=== PATIENT | female | born 1935 | race African-American/Black ===

== ENCOUNTER 2017-09-23 08:50 | Inpatient (IN) ==
[2017-09-23 09:53] LABS: Basophils % 0.5 % (0.0-0.8); Eosinophils # 0.1 10*3/uL (0.0-0.87); Eosinophils % 1.1 % (0.00-10.9); Hematocrit 31.7 VOL% (35.7-47.0); Hemoglobin 10.2 GM/DL (12.0-16.0); Immature Granulocytes % 0.2 %; Immature Granulocytes Absolute 0.01 #; Lymphocytes # 0.9 10*3/uL (1.4-4.0); Lymphocytes % 16.4 % (21.3-54.2); Mean Corpuscular HGB Conc 32.2 GM/DL (32-36); Mean Corpuscular Hemoglobin 28 PG (27-34); Mean Corpuscular Volume 86.4 FL (87-102); Mean Platelet Volume 9.6 FL (9.6-12.0); Monocytes # 0.5 10*3/uL (0.11-0.8); Monocytes % 7.9 % (1.7-12.7); Neutrophils # 4.2 10*3/uL (1.4-7.4); Neutrophils % 73.9 % (38.7-73.9); Platelet Count 199 T/CUMM (130-400); Red Blood Count 3.67 MC/CUMM (3.8-5.5); Red Cell Distribution Width 14.1 % (9.3-17.3); White Blood Count 5.7 T/CUMM (4-12)
[2017-09-23 10:09] LABS: Albumin 3.7 G/DL (3.4-5.0); Bilirubin,Total 0.4 MG/DL (0.2-1.0); Calcium 8.9 MG/DL (8.5-10.1); Osmolality,Calculated 288.4 MOS/KG (273-304); Potassium 4.9 MMOL/L (3.5-5.1); Total Protein 7.4 G/DL (6.4-8.3)
[2017-09-23 10:21] LABS: INR 4.7
[2017-09-23 10:29] LABS: PT Patient Result 46.5 SECS; Partial Thromboplastin Time 54.1 SECS (0-40)
[2017-09-23 10:35] LABS: Apearance,Urine CLEAR (Clear); Bilirubin,Urine Negative (Negative); Blood, Urine Small mg/dL (Negative); Glucose,Urine (UA) Negative (Negative); Ketones,Urine Negative (Negative); Nitrite,Urine Negative (Negative); Protein,Urine Negative; RBC,Urine 3 /HPF (0-4); Urine Color Yellow (Yellow); Urine Specific Gravity 1.011 (1.001-1.035); Urine Urobilinogen < 2.0 EU/DL (0.2-1.0); WBC,Urine <1 /HPF (0-6)
[2017-09-23] MEDS: LACTATED RINGERS 1,000 ML IV SCH ×2 (13:47→20:57)
[2017-09-23] MEDS ORDERED: ACETAMINOPHEN 325 MG TABLET PO PRN (14:32)
[2017-09-23] MEDS ORDERED: ONDANSETRON 4 MG/2 ML VIAL IV PRN (14:32)
[2017-09-23] MEDS ORDERED: COLCHICINE 0.6 MG TABLET PO PRN (14:35)
[2017-09-23] MEDS ORDERED: CLORAZEPATE 3.75 MG TABLET PO PRN (14:35)
[2017-09-23] MEDS ORDERED: PANTOPRAZOLE 40 MG TABLET PO PRN (14:35)
[2017-09-23 16:51] LABS: Troponin I Only < 0.015 NG/ML (0.00-0.045)
[2017-09-23 18:28] LABS: Free T4 (Free Thyroxine) 1.05 NG/DL (0.76-1.46); Thyroid Stimulating Hormone 1.07 uIU/ml (0.358-3.74)
[2017-09-23 18:30] LABS: Troponin I Only < 0.015 NG/ML (0.00-0.045)
[2017-09-23] MEDS: SPIRONOLACTONE 25 MG TABLET PO SCH (20:56)
[2017-09-23] MEDS: ATORVASTATIN 40 MG TABLET PO SCH (20:57)
[2017-09-23] MEDS: IRBESARTAN 150 MG TABLET PO SCH (20:57)
[2017-09-23 21:19] LABS: Troponin I Only < 0.015 NG/ML (0.00-0.045)
[2017-09-23] MEDS: DOCUSATE SODIUM 100 MG CAPSULE PO SCH (22:10)
[2017-09-24 00:21] LABS: Troponin I Only < 0.015 NG/ML (0.00-0.045)
[2017-09-24] MEDS: LACTATED RINGERS 1,000 ML IV SCH ×4 (04:16→20:50)
[2017-09-24 05:01] LABS: Basophils % 0.5 % (0.0-0.8); Eosinophils # 0.1 10*3/uL (0.0-0.87); Eosinophils % 2.2 % (0.00-10.9); Hematocrit 30.2 VOL% (35.7-47.0); Hemoglobin 9.6 GM/DL (12.0-16.0); Immature Granulocytes % 0.5 %; Immature Granulocytes Absolute 0.02 #; Lymphocytes # 1.4 10*3/uL (1.4-4.0); Mean Corpuscular HGB Conc 31.8 GM/DL (32-36); Mean Corpuscular Hemoglobin 28 PG (27-34); Mean Corpuscular Volume 86.8 FL (87-102); Mean Platelet Volume 9.7 FL (9.6-12.0); Monocytes # 0.5 10*3/uL (0.11-0.8); Neutrophils % 49.8 % (38.7-73.9); Platelet Count 193 T/CUMM (130-400); Red Blood Count 3.48 MC/CUMM (3.8-5.5); Red Cell Distribution Width 14.2 % (9.3-17.3); White Blood Count 4.1 T/CUMM (4-12)
[2017-09-24 05:25] LABS: Calcium 8.3 MG/DL (8.5-10.1); Potassium 4.9 MMOL/L (3.5-5.1)
[2017-09-24] MEDS: PANTOPRAZOLE 40 MG TABLET PO SCH (09:15)
[2017-09-24] MEDS: SPIRONOLACTONE 25 MG TABLET PO SCH ×2 (09:15→20:49)
[2017-09-24] MEDS: DOCUSATE SODIUM 100 MG CAPSULE PO SCH ×2 (09:15→20:49)
[2017-09-24] MEDS: ALLOPURINOL 100 MG TABLET PO SCH (09:16)
[2017-09-24] MEDS: methylPREDNISolone SOD SUC 40 MG/1 ML VIAL IV SCH ×2 (11:54→20:47)
[2017-09-24] MEDS: IRBESARTAN 150 MG TABLET PO SCH (20:49)
[2017-09-24] MEDS: ATORVASTATIN 40 MG TABLET PO SCH (20:49)
[2017-09-25] MEDS: LACTATED RINGERS 1,000 ML IV SCH (04:58)
[2017-09-25 04:59] LABS: Basophils % 0.1 % (0.0-0.8); Hematocrit 30.4 VOL% (35.7-47.0); Immature Granulocytes % 0.5 %; Immature Granulocytes Absolute 0.06 #; Lymphocytes # 0.7 10*3/uL (1.4-4.0); Lymphocytes % 5.6 % (21.3-54.2); Mean Corpuscular HGB Conc 32.9 GM/DL (32-36); Mean Corpuscular Hemoglobin 28 PG (27-34); Mean Corpuscular Volume 84.4 FL (87-102); Monocytes # 0.2 10*3/uL (0.11-0.8); Monocytes % 1.5 % (1.7-12.7); Neutrophils # 10.7 10*3/uL (1.4-7.4); Neutrophils % 92.3 % (38.7-73.9); Platelet Count 204 T/CUMM (130-400); Red Cell Distribution Width 13.9 % (9.3-17.3); White Blood Count 11.6 T/CUMM (4-12)
[2017-09-25 05:26] LABS: Band Neutrophils 4 % (0-10); Lymphocytes 6 % (20-55); Segmented Neutrophils 87 % (50-85); Total Cells Counted 100
[2017-09-25 05:27] LABS: Hypochromasia 1+; Microcytosis Slight; Ovalocytes Slight
[2017-09-25 05:28] LABS: Calcium 8.8 MG/DL (8.5-10.1); Osmolality,Calculated 288.5 MOS/KG (273-304); Platelet Estimate Normal; Potassium 5.2 MMOL/L (3.5-5.1)
[2017-09-25] MEDS: PANTOPRAZOLE 40 MG TABLET PO SCH (08:34)
[2017-09-25] MEDS: SPIRONOLACTONE 25 MG TABLET PO SCH ×2 (08:34→20:53)
[2017-09-25] MEDS: ALLOPURINOL 100 MG TABLET PO SCH (08:34)
[2017-09-25] MEDS: DOCUSATE SODIUM 100 MG CAPSULE PO SCH ×2 (09:24→20:54)
[2017-09-25 10:43] LABS: INR 4.6
[2017-09-25 10:46] LABS: PT Patient Result 45.9 SECS
[2017-09-25] MEDS: LACTATED RINGERS IV SCH ×2 (14:50→23:53)
[2017-09-25] MEDS: MAGNESIUM SULF IV SCH ×2 (14:50→23:53)
[2017-09-25] MEDS: IRBESARTAN 150 MG TABLET PO SCH (20:53)
[2017-09-25] MEDS: ATORVASTATIN 40 MG TABLET PO SCH (20:53)
[2017-09-26 05:02] LABS: Basophils % 0.1 % (0.0-0.8); Eosinophils % 0.2 % (0.00-10.9); Hematocrit 27.4 VOL% (35.7-47.0); Hemoglobin 9.1 GM/DL (12.0-16.0); Immature Granulocytes % 0.4 %; Immature Granulocytes Absolute 0.04 #; Lymphocytes # 1.7 10*3/uL (1.4-4.0); Lymphocytes % 18.1 % (21.3-54.2); Mean Corpuscular HGB Conc 33.2 GM/DL (32-36); Mean Corpuscular Hemoglobin 28 PG (27-34); Mean Corpuscular Volume 85.1 FL (87-102); Mean Platelet Volume 10.1 FL (9.6-12.0); Monocytes # 0.6 10*3/uL (0.11-0.8); Monocytes % 6.4 % (1.7-12.7); Neutrophils % 74.8 % (38.7-73.9); Platelet Count 196 T/CUMM (130-400); Red Blood Count 3.22 MC/CUMM (3.8-5.5); Red Cell Distribution Width 14.5 % (9.3-17.3); White Blood Count 9.3 T/CUMM (4-12)
[2017-09-26 05:03] LABS: INR 4.4
[2017-09-26 05:04] LABS: PT Patient Result 44.4 SECS
[2017-09-26 05:37] LABS: Calcium 8.5 MG/DL (8.5-10.1); Potassium 4.8 MMOL/L (3.5-5.1)
[2017-09-26] MEDS ORDERED: LACTATED RINGERS 1,000 ML IV SCH (06:30)
[2017-09-26] MEDS: MAGNESIUM SULF IV SCH (06:59)
[2017-09-26] MEDS: LACTATED RINGERS IV SCH (06:59)
[2017-09-26] MEDS ORDERED: APIXABAN 2.5 MG TABLET PO SCH (09:00)
[2017-09-26] MEDS: SPIRONOLACTONE 25 MG TABLET PO SCH (09:06)
[2017-09-26] MEDS: ALLOPURINOL 100 MG TABLET PO SCH (09:06)
[2017-09-26] MEDS: PANTOPRAZOLE 40 MG TABLET PO SCH (09:06)
[2017-09-26] MEDS: DOCUSATE SODIUM 100 MG CAPSULE PO SCH (09:06)
[2017-09-26 12:17] VITALS: BP 139/72
== END 2017-09-26 14:56 | disposition home or self-care (01) | DRG 149 ==
LOC: EDUNIT# → EDBD → N.ED 08:50 → N.EDINP 08:50 → N.TELEN 12:52
PROVIDERS: ADMIT Family Medicine; ATTEND Family Medicine